=== PATIENT | female | born 1950 | race Hispanic/Latino ===

== ENCOUNTER 2018-07-12 09:42 | Outpatient (CLI) | payer MEDICARE | END 2018-07-12 09:43 | disposition home or self-care (01) | LOC: C.MAMMO 09:42 | DX: Z12.31 Encounter for screening mammogram for malignant neoplasm of breast (principal) ==

== ENCOUNTER 2018-07-23 11:34 | Outpatient (CLI) | payer MEDICARE | END 2018-07-23 11:35 | disposition home or self-care (01) | LOC: C.MAMMO 11:34 ==

== ENCOUNTER 2018-08-01 09:48 | Outpatient (CLI) | payer MEDICARE | END 2018-08-01 09:49 | disposition home or self-care (01) | LOC: C.PAT 09:48 → C.RADH 09:49 ==